=== PATIENT | male | born 1950 | race Two or more races ===

== ENCOUNTER 2024-07-01 10:55 | Emergency (ER) | payer BC, OTHER ==
[~2024-07-01] VITALS: Ht 175.3 cm; Wt 90.7 kg
[2024-07-01] MEDS ORDERED: GLUMETZA500 MG (11:16)
[2024-07-01] MEDS ORDERED: HYDROCHLOROTHIA25 MG (11:17)
[2024-07-01] MEDS ORDERED: IBERSARTAN (11:17)
[2024-07-01] MEDS ORDERED: NEURONTIN800 MG (11:17)
[2024-07-01] MEDS ORDERED: ANALPRAM HC 2.530 GM RECTAL (11:28)
[2024-07-01] MEDS ORDERED: NEURONTIN300 MG PO (11:28)
== END 2024-07-01 12:21 | disposition home or self-care (01) ==
LOC: ER 10:57
DX: K62.89 Other specified diseases of anus and rectum (principal); E11.9 Type 2 diabetes mellitus without complications; Z79.84 Long term (current) use of oral hypoglycemic drugs; Z88.0 Allergy status to penicillin